=== PATIENT | female | born 1995 | race Caucasian/White ===

== ENCOUNTER 2023-07-25 15:11 | Outpatient (CLI) | payer BC, SELFPAY | END 2023-07-25 15:12 | disposition home or self-care (01) | PROVIDERS: PCP Family Medicine; Visit Provider Family Medicine | DX: Z00.00 Encounter for general adult medical examination without abnormal findings (principal); R53.83 Other fatigue; E66.01 Morbid (severe) obesity due to excess calories | CPT/HCPCS: 80053; 80061; 84443 ==

== ENCOUNTER 2024-12-06 15:30 | Outpatient (CLI) | payer BC, SELFPAY ==
[2024-12-06 19:53] LABS: Chlamydia DNA Amplified* NOT DETECTED (No Detected); GC DNA Amplified* NOT DETECTED (No Detected)
== END 2024-12-06 15:31 | disposition home or self-care (01) ==
LOC: NFLDREF 15:31
PROVIDERS: PCP Family Medicine; Visit Provider Registered Nurse
DX: Z11.3 Encounter for screening for infections with a predominantly sexual mode of transmission (principal)
CPT/HCPCS: 87491; 87591

== ENCOUNTER 2025-02-06 08:09 | Outpatient (CLI) | payer BC, SELFPAY ==
[2025-02-06 14:42] LABS: Bacterial Vaginosis* Negative (Negative); Candida glab/krus NOT DETECTED (No Detected); Candida species NOT DETECTED (No Detected); Trichomonas vaginalis NOT DETECTED (No Detected)
[2025-02-06 14:55] LABS: Chlamydia DNA Amplified* NOT DETECTED (No Detected); GC DNA Amplified* NOT DETECTED (No Detected)
== END 2025-02-06 08:10 | disposition home or self-care (01) ==
PROVIDERS: PCP Family Medicine; Visit Provider Registered Nurse
DX: N92.6 Irregular menstruation, unspecified (principal); Z11.3 Encounter for screening for infections with a predominantly sexual mode of transmission
CPT/HCPCS: 81513; 84443; 87481; 87491; 87591; 87661

== ENCOUNTER 2025-03-12 16:43 | Emergency (ER) | payer BC, SELFPAY ==
--- OUTSIDE RECORDS SUMMARY | 2025-03-12 16:44 | XMS_ITS | Clinical Summary ---
Author Organization [facility] Address [facility] [place] [address] Care Team Providers Care Acute Specialist Name Role Phone Jessica Quiñones RD Unavailable [phone] Jacquelyn De La Fuente TECHNOLOGY INFUSION SPECIALIST Unavailable Andres Valles MD Unavailable Enedelia Lowry RN Unavailable Poonam Motley Primary Care Provider [phone] Allergies Active Allergy Reactions Criticality Noted Date Comments Amoxicillin Hives 01/15/2014 Doxycycline Hives High 03/05/2019 Medications albuterol HFA (PRO-AIR; VENTOLIN; PROVENTIL) 90 mcg/actuation inhaler Inhale 2 Puffs by mouth 4 times daily if needed for Shortness Of Breath. Active fluticasone propion-salmeteroL (Advair HFA) 115-21 mcg/actuation inhalerIndications :Moderate persistent asthma with exacerbation (HC) Inhale 2 Puffs by mouth two times daily. 1 Each 4 Active cholecalciferol, Vitamin D3, 2,000 unit tabletIndications: Vitamin D insufficiency Take 1 Tablet (2,000 units) by mouth once daily. Active calcium citrate-vitamin D3, 315 mg-250 units, (CITRACAL WITH VITAMIN D) 315 mg-6.25 mcg (250 unit) tab tabletIndications: Morbid obesity with BMI of 40.0-44.9, adult (HC) Take 2 Tablets by mouth two times daily with meals. Total daily dose of Calcium should be 1200mg - 1500mg 4 Active multivitamin pediatric chewable tabletIndications: Morbid obesity with BMI of 40.0-44.9, adult (HC) Chew 2 Tablets by mouth once daily. 4 Active cholecalciferol, Vitamin D3, (Vitamin D-3) 5,000 unit tab tabletIndications: Morbid obesity with BMI of 40.0-44.9, adult (HC) Take by mouth once daily. 4 Active phentermine (ADIPEX-P) 37.5 mg tabletIndications: Obesity, Class II, BMI 35-39.9 Take 1 Tablet (37.5 mg) by mouth once daily before a meal. 30 Tablet 2 4 Active DULoxetine (CYMBALTA) 30 mg Delayed-release capsuleIndications :MDD (major depressive disorder), recurrent episode, moderate (HC) Take 1 Capsule (30 mg) by mouth once daily. 90 Capsule 3 4 Active ibuprofen (ADVIL; MOTRIN) 800 mg tabletIndications: Dysmenorrhea Take 1 Tablet (800 mg) by mouth every 8 hours if needed for Pain. 60 Tablet 1 4 Active atorvastatin (LIPITOR) 20 mg tabletIndications: Mixed hyperlipidemia Take 1 Tablet (20 mg) by mouth at bedtime. 90 Tablet 2 5 Active Active Problems Patient Care Coordination No te Formatting of this note is d ifferent from the original. Weight Management - Adult Surgical Program Patient Received Binder: Yes Part of [facility] Program: no RDC or GS Patient: No Home Hospital Plan: Candidate (Initial Consult) Initial Consult / Established Care 04/05/[address] Andres Lowry product support analyst: Wt Readings from Last 1 Encounters: 04/05/24 106.1 kg (234 lb) lbs, Ht Readings from Last 1 Encounters: 04/05/24 1.549 m (5' 0.98) BMI: 44.24 Planned Operation Sleeve Gastrectomy Payor: [employer] [place] / Plan: [employer] [place] / Product Type: *No Product type* / Insurance requirements:Six months (non consecutive) and Rule out endocrine Est. Pgm Completion: ~ October, Procedure Location: [facility] Co-morbidities: dyslipidemia Orders: Labs Yes Imaging / Procedures Abdominal Ultrasound Pre-Surgery Program Consults: - Registered Dietitian 6 - Psychological Evaluation: yes Referrals: Yes - PT: -Tobacco Cessation: reports that she is a non-smoker but has been exposed to tobacco smoke. She has never used smokeless tobacco. Future Appointments Date Time Provider Department Center 04/22/2024 2:[address] [facility] Problem Noted Date Diagnosed Date Cannabis dependence 04/05/2024 Morbid obesity with BMI of 40.0-44.9, adult 03/17 Mixed hyperlipidemia 12/28/2023 Moderate persistent asthma with exacerbation De Quervain's tenosynovitis 05/19/2023 Type O blood, Rh negative 10/21/2021 Morbid obesity 09/07/2021 Overview (12/21/2021): We discussed that, even in the absence of co-morbid conditions, women who are obese at the start of have increased risks. These risks include, but are not limited to, miscarriage, gestational diabetes, preeclampsia, intrauterine demise, defects, section, post hemorrhage, wound or uterine infections, and venous thromboembolism. Recommend no weight gain this . Asthma 09/07/2021 12/27/2022 Dyssomnia 12/31/2020 Chronic post-traumatic stress disorder (PTSD) Rhinitis, allergic 04/17/2019 Mild episode of recurrent major depressive disor oksana 03/05/2019 Generalized anxiety disorder 03/05/2019 Adult BMI 30+ 07/20/2015 Migraine 05/01/2013 Mild intermittent asthma 08/26/2011 Overview (09/18/2019): Overview: Asthma, Unspecified Resolved Problems Problem Noted Date Diagnosed Date Resolved Date Status post repeat low trans verse section 05/24/2022 12/27/2022 Normal labor 05/24/2022 12/27/2022 Supervision of other high ri sk pregnancies, unspecified trimester 10/20/2021 12/27/2022 12/27/2022 Overview (12/27/2022): Baseline labs wnl 10/20/2021. ASA started Habitual aborter, antepartum 09/10/2021 12/27/2022 12/27/2022 Overview (12/27/2022): She has had 2 consecutive confirmed chemical pregnancies since 04/2021. TSH and EDUARDO and LA normal. Will recheck EDUARDO and LA in approx 8 weeks. Will plan in office hysteroscopy for evaluation of the endometrial cavity. This issue developed after her last section. My nurse will be in contact with her to coordinate this. She will start OCPs after her next period to keep the endometrium thin until the procedure is performed. She has had 2 prior successful pregnancies, making a genetic issue less likely, but I will recommend karyotype if she has another confirmed SAB or the hysteroscopy is normal. Maternal care for low transv erse scar from previous delivery 09/07/2021 12/27/2022 Overview (12/21/2021): LTCS x2. Plan repeat with tubal ligation Personal history of other co mplications of , childbirth and the puerperium 09/07/2021 12/27/2022 Supervision of other high ri sk pregnancies, unspecified trimester 09/07/2021 12/27/2022 Overview (12/21/2021): Prior GDM A1, recommending diabetic diet this A1c pad Maternal mental disorder, with delivery 07/20/2015 12/27/2022 Airway hyperreactivity 03/10/201012/27 Encounters Date Type Department Care Team Description 01/02/2025 12:45 PM CDT Orders Only [facility] [address] [facility], [place] [id number] Lab, [place] [facility] 01/02/2025 Travel 12/13/2024 Refill [facility] [address] [place] [address] Poonam Motley PA Refill Request (Atorvastatin) from Last 3 Months Immunizations Immunization Administration Dates Next Due COVID-19 vaccine (Wallerius-Bio NTech 30mcg/0.3mL) PF, MDV 10/14/2021,03/31/2021,03/10/2021 DT (Age < 7 years) 12/28/2005 DTP-HIB 04/27/1995,01/09/1995,1994 DTaP 09/23/1999,09/22/1999,11/10/1998 DTaP-HIB (TriHIBIT) 09/11/1996 Hepatitis A (Peds) 09/28/2010,03/10/2010 Hepatitis A (Peds),Unspecified 09/28/2010 Hepatitis A, Unspecified 09/28/2010 Hepatitis B, Unspecified 04/27/1995,1994,1 10/23/1993 Human Papilloma Virus Vaccine 06/18/2008, 008,09/03/2007 Influenza Virus, Unspecified 09/23/2015, 08/14/2014,07/29/2013,06/25,08/17/2011 Influenza, IIV3 (Age >=3 years) 10/05/2017,10/02,09/03/2007 Influenza, IIV4 08/08/2019,07/24/2018,10/05/2017 Influenza, IIV4 (=>6mos) MDV 09/23/2015 Meningococcal Vaccine (Menactra) 12/28/2005 Oral Polio Vaccine 09/23/1999, 9,01/09/1995,11/04 Polio Virus, Unspecified 09/23/1999,11/10/1997,1 11/11/1995 Td (Age >=7 Years) 12/28/2005 Tdap 03/16/2022,06/04/2018 Varicella Vaccine 07/14/2007,07/09/2007,11/10/18 99 Social History Tobacco Use Types Packs/Day Years Used Date Smoking Tobacco: Passive Smo ke Exposure - Never Smoker Smokeless Tobacco: Never Tobacco Cessation:Counseling Given: Yes Alcohol Use Standard Drinks/Week Comments No 0 (1 standard drink = 0.6 oz pur e alcohol) PHQ-2 Answer Date Recorded PHQ-2 TOTAL SCORE 3 09/19/2024 Social Connections Answer Date Recorded Do you often feel lonely or isolated from those around you? 0 09/19/2024 Financial Resource Strain Answer Date R ecorded Difficulty of Paying Living Expenses 2 09/19/2024 Difficulty of Paying Living Expenses 1 09/19/2024 Food Insecurity Answer Date Recorded Do you worry your food will run out before you are able to buy more? 1 09/19/2024 Transportation Needs Answer Date Record ed Does lack of transportation keep you from medica l appointments? 1 09/19/2024 Does lack of transportation keep you from work, meetings or getting things that you need? 1 09/19/2024 Housing Stability Answer Date Recorded What is your housing situation today? 1 09/19/2024 Utilities Answer Date Recorded Do you have trouble paying f or utilities (for example, heat, electricity, water, phone)? 2 09/19/2024 Comments No Sex and Gender Information Value Date Recorded Sex Assigned at Not on file Legal Sex Female 5:23 AM CUSTOMER SUPPORT REPRESENTATIVE Gender Identity Not on file Sexual Orientation Not on file Obstetrics History Para Term AB IAB SAB Ectopic Multiple Livin g Live Births 5 3 2 1 2 2 0 3 3 Date Outcome GA Total Labor Labor/2nd/3rd Weight Sex Type Anes PTL Essie A1 A5 Name Clin 2013 34w 5d F CS-LTr anv Livin g Paige a 2017 Term 37w 1d F C-Sect ion Livin g Aubre e 2020 SAB SPONTA NEOUS 2020 SAB SPONTA NEOUS 2021 Term 38w 2d 0h 01m 0h 01m 3 kg (6 lb 9.8 oz) F C-Sect ion Spinal Livin g 8 8 BG YADIRA SCHOFIELD, Yeison Hein MD Complications:None Delivery Location:Hospital ( [facility] Last Filed Vital Signs Vital Sign Reading Time Taken Comments Blood Pressure 120/86 10/28/2024 9:02 AM CUSTOMER SUPPORT REPRESENTATIVE sta ellen Pulse 91 10/28/2024 9:02 AM CUSTOMER SUPPORT REPRESENTATIVE Temperature 36.9 C (98.5 F) 03/19/2023 4:18 PM CDT Respiratory Rate 20 03/19/2023 4:18 PM CDT Oxygen Saturation 100% 09/19/2024 8:51 AM CUSTOMER SUPPORT REPRESENTATIVE Inhaled Oxygen Concentration - - Weight 89.4 kg (197 lb) 11/06/2024 1:00 PM CUSTOMER SUPPORT REPRESENTATIVE Height 154.9 cm (5' 0.98) 11/06/2024 1:00 PM CS T Body Mass Index 37.24 11/06/2024 1:00 PM CUSTOMER SUPPORT REPRESENTATIVE Plan of Treatment Health Maintenance Due Date Last Done Comments Pneumococcal series for age 6-49 (1 of 2 - PCV) 2013 Pap test for age 21-65 03/17/2024 , 03/17/2021, 01/15/2018, Additional history exists COVID-19 vaccine series ( season) 2024 10/14/2021, 03/31/2021, 03/10/2021 Influenza Vaccine (Season Ended) 2025 08/08/2019, 07/24/2018, 10/05/2017, Additional history exists Depression screening for age 12+ 09/19/2025 09/19/2024, 12/26/2023, 12/27/2022, Additional history exists BMI (ht and wt on same day) for age 18+ 11/06/2025 11/06/2024, 09/18/2024, 09/03/2024, Additional history exists Tetanus booster 03/16/2032 03/16/2022, 05/17, 12/28/2005 Hepatitis B series for 19+ Completed 04/27, 1994, 1994 HIV for age 15-65 Addressed 10/20/2021 (Ve rified in Care Everywhere or Patient Record) Overridden with the intention of not completing the topic Hepatitis C screening for age 18-79 Addressed 10/20/2021 (Verified in Care Everywhere or Patient Record) Overridden with the intention of not completing the topic Tdap Completed 03/16/2022, 06/04/2018 Procedures Procedure Name Priority Date/Time Associated Diagnosis Comments LIPID PANEL W REFLEX MEASURED LDL Routine 01/02/2025 12:47 PM CDT Mixed hyperlipidemia COMP METABOLIC PANEL Routine 01/02/2025 12:47 PM CDT Mixed hyperlipidemia FLY RAISER LOCKSTITCH THIN PREP PAP SCREEN IMAGED Routine 03/17/2021 1:45 PM CDT from Last 3 Months or Most Recently Relevant to Health Maintenance Results * (ABNORMAL) LIPID PANEL W REFLEX MEASURED LDL (01/02/2025 12:47 PM CDT) CHOLESTEROL, TOTAL 222(H) <200 mg/dL [facility] HDL CHOLESTEROL 47(L) > OR = 50 mg/dL [facility] TRIGLYCERIDES 165(H) <150 mg/dL [facility] LDL-CHOLESTEROL 145(H) mg/dL (calc) [facility] Comment: Reference range: <100 Desirable range <100 mg/dL for primary prevention; <70 mg/dL for patients with CHD or diabetic patients with > or = 2 CHD risk factors. LDL-C is now calculated using the Amador-Milligan calculation, which is a validated novel method providing better accuracy than the Friedewald equation in the estimation of LDL-C. Amador SS et al. LIANA. 2013;310(19): 8156-4588 (http://education.Fanwards/faq/WGS337) CHOL/HDLC RATIO 4.7 <5.0 (calc) [facility] NON HDL CHOLESTEROL 175(H) <130 mg/dL (calc) [facility] Comment: For patients with diabetes plus 1 major ASCVD risk factor, treating to a non-HDL-C goal of <100 mg/dL (LDL-C of <70 mg/dL) is considered a therapeutic option. Blood BLOOD SPECIMEN / Unknown 01/02/2025 12:47 PM CDT 01/02/2025 12:47 PM CDT us Poonam DESAI CHEMISTRY Final Resu lt [facility] [address] [place] [address], [facility] [address] [place] [address] * (ABNORMAL) COMP METABOLIC PANEL (01/02/2025 12:47 PM CDT) [facility] GLUCOSE 98 65 - 99 mg/dL [facility] Comment: Fasting reference interval UREA NITROGEN (BUN) 14 7 - 25 mg/dL [facility] CREATININE 0.62 0.50 - 0.97 mg/dL [facility] EGFR 123 > OR = 60 mL/min/1. 73m2 [facility] BUN/CREATININE RATIO SEE NOTE: 6 - 22 (calc) [facility] Comment: Not Reported: BUN and Creatinine are within reference range. SODIUM 137 135 - 146 mmol/L [facility] POTASSIUM 4.0 3.5 - 5.3 mmol/L [facility] CHLORIDE 101 98 - 110 mmol/L [facility] CARBON DIOXIDE 28 20 - 32 mmol/L [facility] CALCIUM 9.1 8.6 - 10.2 mg/dL [facility] PROTEIN, TOTAL 7.0 6.1 - 8.1 g/dL [facility] ALBUMIN 4.2 3.6 - 5.1 g/dL [facility] GLOBULIN 2.8 1.9 - 3.7 g/dL (calc) [facility] ALBUMIN/GLOBULIN RATIO 1.5 1.0 - 2.5 (calc) [facility] BILIRUBIN, TOTAL 0.6 0.2 - 1.2 mg/dL [facility] ALKALINE PHOSPHATASE 77 31 - 125 U/L [facility] AST 26 10 - 30 U/L [facility] ALT 31(H) 6 - 29 U/L [facility] Blood BLOOD SPECIMEN / Unknown 01/02/2025 12:47 PM CDT 01/02/2025 12:47 PM CDT Poonam DESAI CHEMISTRY Final Resu lt [facility] [address] [place] [address], [place] [phone] [facility] [address] [place] [address] * FLY RAISER LOCKSTITCH THIN PREP PAP SCREEN IMAGED (03/17/2021 1:45 PM CDT) Case Report Gynecologic Cytology Report Case: [id number] Authorizing Provider: Ann Joshi MD Collected: 03/17/2021 1345 Ordering Location: [facility] Received: 03/19/2021 0730 First Screen: Rahel García Specimen: FLY RAISER LOCKSTITCH ThinPrep Vial Screening, Cervical/Vaginal 03/26/2021 5:45 PM CDT [facility] [employer] [facility] INTERPRETATION/ RESULT NEGATIVE FOR INTRAEPITHELIAL LESION OR MALIGNANCY (NIL) (none) 03/26/2021 5:45 PM CDT [facility] at 1745 CDT SPECIMEN ADEQUACY Satisfactory for evaluation Endocervical component present 03/26/2021 5:45 PM CDT [facility] HPV REQUEST HPV and PAP 03/26/2021 5:45 PM CDT [facility] Date of LMP 02/19/2021 03/26/2021 5:45 PM CDT [facility] Last Pap Date 01/15/2018 03/26/2021 5:45 PM CDT [facility] Last Pap Result NIL 5:45 PM CDT [facility] Additional Information 03/26/2021 5:45 PM CDT [facility] Comment: Interpreted at [facility] [employer] [facility], Central Laboratory - [address], [place] [address] Automated Review Successful 03/26/2021 5:45 PM CDT [facility] Comment:Specimen processed s uccessfully by automated counselor camp device, ThinPrep Imaging System, [employer] ANCILLARY TESTING FLY RAISER LOCKSTITCH HPV Ordered, Please see separate report 03/26/2021 5:[address] [facility] Note The pap test is a screening technique, not a diagnostic procedure. It is used primarily to screen for squamous cancers and precursor lesions. Published studies have shown that it is subject to both false negative and false positive results. The pap test should not be used as the sole means to diagnose or exclude pre-malignant and malignant lesions. 03/26/2021 5:[address] [facility] Other (Cervical/Vagina l) 03/17/2021 1:45 PM CDT 03/19/2021 7:30 AM CDT us Ann Joshi MD PATHOLOGY/CYTOLOGY Final R esult [facility] [address] [place] [address], from Last 3 Months or Most Recently Relevant to Health Maintenance Insurance [facility] WORKERS COMP Advance Directives * Full Code (Latest Code Status on File) Date Activated Date Inactivated Comments 05/24/2022 5:24 AM 05/26/2022 2:10 PM Question Answer Comments Code Status Discussion: Reviewed Preferences Care Teams Acute Specialist Relationship Specialty Start Date End Date Poonam Motley PA [address] [place] [address] PCP - General Physician [facility] 09/20/24 Jessica Quiñones RD [address] [place] [address] Chief Radiologic Technologist 04/22/24 Jacquelyn De La Fuente NP [address] [facility] [address] [place] [address] Consulting Physician Nurse Practitioner - Adult 03/28/24 Andres Valles MD [address] [address] Consulting Physician Surgery - General 04/05/24 Enedelia Lowry RN [address] [place] [id number] Award Machine Operator Registered Nurse 04/05/24
[2025-03-12 16:49] VITALS: BP 142/77; PULSE 87; RESP 18; TEMP 36.5; O2SAT 99; BMI 37.8
--- NOTE | 2025-03-12 16:49 | CRLHL7_ITS ---
For Patients: As a result of the Century Cures Act, medical imaging exams and procedure reports are released immediately into your electronic medical record. You may view this report before your referring provider. If you have questions, please contact your health care provider. INDICATION: Diffuse abdominal pain TECHNIQUE: CT abdomen and pelvis acquired with 98 cc Isovue 370 IV contrast. COMPARISON: None. FINDINGS: Lower chest: Left lower lobe solid nodule with surrounding ground-glass measuring 1 cm (3/). Liver: Unremarkable. Normal in size and attenuation. No suspicious masses. Gallbladder and bile ducts: Unremarkable. No stones or inflammation. No biliary dilatation. Pancreas: Unremarkable. No mass or inflammation. Spleen: Unremarkable. Normal in size. No masses. Adrenal glands: Unremarkable. No nodules. Kidneys: Right interpolar nonobstructing renal calculus measuring 6 mm.. No suspicious masses, stones, or hydronephrosis. GI tract: Diffusely fluid-filled small bowel with prominent caliber small bowel loops with mild wall thickening in the left mid abdomen and left upper quadrant. No surrounding fat stranding to suggest definite inflammation. Mildly distended stomach with ingested contents. Normal appendix. Vasculature: Abdominal aorta is normal in caliber. Mesenteric arteries are patent. Lymph nodes: No lymphadenopathy. Peritoneum/Abdominal Wall: Unremarkable. No sign of mass or infiltration. No free air or significant free fluid. Pelvis: IUD in place in appropriate position. Bones: Unremarkable for age. IMPRESSION: 1. Left lower lobe solid pulmonary nodule with surrounding ground-glass measuring 1 cm is indeterminate although likely infectious/inflammatory given the patient`s age and presumed absence of malignancy history. Consider short interval follow-up CT in 3 months to assess stability. 2. Diffusely fluid-filled small bowel with prominent caliber small bowel loops with mild wall thickening in the left mid abdomen and left upper quadrant. Findings may suggest early acute enteritis. 3. Nonobstructing right renal calculus. Please note that all CT scans at this facility use dose modulation, iterative reconstruction, and/or weight-based dosing when appropriate to reduce radiation dose to as low as reasonably achievable. Dictated by Felipa Varner MD @ 03/12/2025 6:48:25 PM (Electronically Signed)
--- NOTE | 2025-03-12 16:51 | ED_ITS ---
HPI - General Adult General Chief complaint: Abdominal Pain Stated complaint: stomach pain, sent by urgent care Time Seen by Provider: 03/12/25 16:45 History of Present Illness HPI narrative: Patient is a 29 year white female who for 3 days has had epigastric and lower abdominal pain. She has had a bilateral tubal ligation. She has had nausea but no vomiting, frequent stools but no diarrhea. No blood in her stool. She is unclear what is happening. She has had a difficult time finding a comfortable position. She has not had any urinary symptoms or flank pain it has been more in the epigastrium and mid to lower abdomen. She said it started on the right side now it is more on the left side. She has had no rigors or chills. No dysuria frequency. No chest pain, no shortness of breath. Related Data Home Medications ?Medication ?Instructions ?Recorded ?Confirmed albuterol sulfate 90 mcg/actuation 2 inhalation PRN 03/12/25 aerosol inhaler Allergies Allergy/AdvReac Type Severity Reaction Status Date / Time amoxicillin Allergy Mild Rash Verified 03/12/25 17:47 doxycycline AdvReac Intermediate Hives Verified 03/12/25 17:47 Review of Systems Status of ROS: Reports: 6 or more systems reviewed and unremarkable except as noted in History and below [facility] Medical History Seasonal allergic rhinitis ?J30.2 - Other seasonal allergic rhinitis (ICD-10) Gastroesophageal reflux disease ?K21.9 - Gastro-esophageal reflux disease without esophagitis (ICD-10) Depression ?F32.A - Depression, unspecified (ICD-10) Anxiety ?F41.9 - Anxiety disorder, unspecified (ICD-10) Right wrist tendinitis ?M77.8 - Other enthesopathies, not elsewhere classified (ICD-10) Left wrist tendinitis ?M77.8 - Other enthesopathies, not elsewhere classified (ICD-10) Immune to varicella (2018) ?Z78.9 - Other specified health status (ICD-10) Gestational diabetes mellitus (GDM) ?O24.419 - Gestational diabetes mellitus in , unspecified control (ICD-10) Pruritic rash (05/2018) ?L28.2 - Other prurigo (ICD-10) Chest wall pain ?R07.89 - Other chest pain (ICD-10) History of pre-eclampsia ?Z87.59 - Personal history of other complications of , childbirth and the puerperium (ICD-10) Surgical History Hx of tubal ligation (2021) ?Z98.51 - Tubal ligation status (ICD-10) H/O foot surgery ?Z98.890 - Other specified postprocedural states (ICD-10) History of section (2013) ?Z98.891 - History of uterine scar from previous surgery (ICD-10) Family History Family/Other Down syndrome Paternal Grandfather Myocardial infarction Stroke Maternal Grandmother Bone cancer Type 1 diabetes mellitus Diabetes High blood pressure Other Thyroid disease Social History Narrative: Single lives with boyfriend, [id number] mom, 3 kids Nonsmoker, remote history of 2 years of irregular smoking Does not drink alcohol Exercises twice a week body weight exercises 20-30 minutes Uses medical marijuana twice a month for anxiety Habits: No tobacco or alcohol use. History of tobacco use quit in 2011. Marijuana use is reported for medical reasons. What is your current living situation?: I presently have a place to live Problems where you live: no known problems In the past 12 months, utilities in danger of being shut off: no In past 12 months, lack of transportation kept you from medical appts, meetings, work, or getting things needed for daily living: no In the past 12 mos, have been you worried that your food would run out before you had money to buy more?: never true In the past 12 mos, the food you bought just didn't last and you didn't have money to buy more?: never true Smoking Status: Former smoker Do you use any of these nicotine containing products: None Second hand tobacco smoke exposure: No How often do you have a drink containing alcohol: never How often do you have six or more drinks on one occasion: Never AUDIT-C Alcohol total score: 0 Non-prescribed substance use: denies use How often does anyone, including family, friends and others, physically hurt you : never How often does anyone, including family, friends and others, insult or talk down to you: never How often does anyone, including family, friends and others, threaten you with harm: never How often does anyone, including family, friends and others, scream or curse at you: never service: No Exam Narrative: Exam Narrative: Objective: Vital signs are within normal limits in general patient in no marked distress Patient alert orient x3 communicative HEENT is unremarkable no scleral icterus no facial asymmetry Neck is supple Pulse regular Abdomen benign obese nontender no rebound, no palpable masses, negative CVA tenderness Normal extremities without edema and no focal neurologic findings. Skin is without rashes or color changes Const: Vital Signs, click to edit/add: Vital Signs - 24 hr 03/12/25 16:49 03/12/25 19:27 Temperature 97.7 F Pulse Rate [Pulse Oximeter] 87 Respiratory Rate 18 20 Blood Pressure [Ri ght Upper Arm] 142/77 H 118/74 Pulse Oximetry 99 99 Oxygen Delivery Me thod Room Air Course Vital Signs Vital signs: Initial Vital Signs Temperature 97.7 F 03/12/25 16:49 Temperature Source Temporal Artery Scan 03/12/25 16:49 Pulse Rate 87 03/12/25 16:49 Pulse Rhythm Regular 03/12/25 16:49 Respiratory Rate 18 03/12/25 16:49 Blood Pressure 142/77 H 03/12/25 16:49 Blood Pressure Mean 98 03/12/25 16:49 Blood Pressure Position Sitting 03/12/25 16:49 Pulse Oximetry 99 03/12/25 16:49 Oxygen Delivery Method Room Air 03/12/25 16:49 Vital Signs Temperature 97.7 F 03/12/25 16:49 Pulse Rate 87 03/12/25 16:49 Respiratory Rate 18 03/12/25 16:49 Blood Pressure 142/77 H 03/12/25 16:49 Pulse Oximetry 99 03/12/25 16:49 Oxygen Delivery Method Room Air 03/12/25 16:49 Temperature 97.7 F 03/12/25 16:49 Pulse Rate 87 03/12/25 16:49 Respiratory Rate 20 03/12/25 19:27 Blood Pressure 118/74 03/12/25 19:27 Pulse Oximetry 99 03/12/25 19:27 Oxygen Delivery Method Room Air 03/12/25 16:49 Medications Administered Medications: Discontinued Medications Generic Name Dose Route Start Last Admin Trade Name Christiano PRN Reason Stop Dose Admin Sodium Chloride 1,000 mls @ 6,000 mls/hr 03/12/25 17:00 03/12/25 18:24 0.9 % Sodium Chloride 1000 Ml IV 03/12/25 17:09 Infused .Q10M FELIPE Infusion Lorazepam 0.5 mg 03/12/25 16:49 03/12/25 17:04 Lorazepam 2 Mg/Ml Inj IVP 0.5 mg ONCE PRN Administration Morphine Sulfate 2 mg 03/12/25 16:49 03/12/25 17:05 Morphine 4 Mg/Ml Inj IVP 03/12/25 16:50 2 mg ONCE ONE Administration Medical Decision Making MDM Narrative Medical decision making narrative: 29-year-old female with 3 day history of abdominal discomfort abdominal gassiness, nausea, frequent stools but no diarrhea no vomiting. No history of abdominal problems. Status post tubal ligation. She has had a in the past as well. I think at this point we rule out obstruction, rule out any type of intestinal infection, rule out appendicitis. CT scan with IV contrast abdomen pelvis Will also get labs, IV fluid, IV small dose of morphine and Ativan. Addendum 7:15 p.m. the patient has a CT scan that shows diffuse early enteritis some fluid in the small bowel. I think that is the source of her issue. I think some pain management with [place] would help her for a day or so, keep NPO for 24 hours, can not take sips of water. Recheck with regular doctor as needed. She also has a nonobstructing kidney stone noted, and as well has a ground-glass surrounded acute lung nodule that needs follow-up in about [address] This was informed to her. She can set that up with her primary care doctor. Return if problems or concerns or recurrent pain that she is unable to manage. Lab Data Labs: Lab Results 03/12/25 03/12/25 Range/Units 17:00 18:35 WBC 4.96 (4.50-11.00) K/uL RBC 4.54 (4.00-5.20) m/uL Hgb 12.7 (12.0-16.0) gm/dL Hct 39.2 (33.0-51.0) % MCV 86 (80-100) fL MCH 28 (26-34) pg MCHC 32 (32-36) gm/dL RDW Coeff of Neo 11.8 (11.5-15.5) % Plt Count 245 (140-440) K/uL Neut % (Auto) 55.0 (42.0-72.0) % Lymph % (Auto) 32.9 (20-44) % [place] % (Auto) 9.5 (0.0-11.0) % Eos % (Auto) 2.4 (0.0-7.0) % Baso % (Auto) 0.0 (0.0-3.0) % Neut # (Auto) 2.73 (1.7-7.0) K/uL Lymph # (Auto) 1.63 (0.90-2.90) K/uL [place] # (Auto) 0.50 (0.00-0.90) K/UL Eos # (Auto) 0.12 (0.00-0.50) K/uL Baso # (Auto) 0.00 (0.00-0.30) K/uL Abs Immat Gran (auto) 0.01 (0.00-0.30) K/uL Imm/Tot Granulo (auto) 0.2 % Sodium 140 (135-149) mmol/L Potassium 3.5 L (3.6-5.1) mmol/L Chloride 103 (96-114) mmol/L Carbon Dioxide 29 (20-32) mmol/L Anion Gap 8 (7-15) mEq/L BUN 13 (5-24) mg/dL Creatinine 0.7 (0.5-1.5) mg/dL Estimated Creat Clear 88.68 Estimated GFR 119 ml/min Glucose 86 (60-115) mg/dL Calcium 9.0 (8.4-10.6) mg/dL Total Bilirubin 0.6 (0.1-1.5) mg/dL Direct Bilirubin 0.2 (0.0-0.5) mg/dL AST 36 H (12-35) U/L ALT 22 (4-35) U/L Alkaline Phosphatase 73 (40-150) U/L C-Reactive Protein 0.7 (0.5-1.0) mg/dL Total Protein 7.5 (6.0-8.3) g/dL Albumin 4.4 (3.3-5.0) g/dL Amylase 57 (18-89) U/L HCG, Qual Negative (Negative) Urine Color Deepika A (Yellow) Urine Appearance Slightly Cloudy A (Clear) Urine pH 5.5 (5.0-8.5) Ur Specific [place] 1.025 (1.000-1.030) Urine Protein 1+ A (Negative) Urine Glucose (UA) Negative (Negative) Urine Ketones Negative (Negative) Urine Blood 3+ A (Negative) Urine Nitrite Negative (Negative) Urine Bilirubin Negative (Negative) Urine Urobilinogen 0.2 (0.2-1.0) Ur Leukocyte Esterase Trace A (Negative) Urine RBC 0-2 (0-2) Urine WBC 0-2 (0-5) Ur Squamous Epith Cells Few (None-Few) Urine Bacteria Few A (None) Urine Mucus Moderate A (None) Discharge Plan Discharge Clinical Impression: Abdominal pain, Enteritis, Incidental lung nodule Patient Disposition: Home w/ Parent or Adult Condition: Improved Additional Instructions: Recommend only sips of water for the next 12 hours or so then may resume diet as tolerated. Will give some pain medicine to use as needed. Also remember you have a lung nodule that needs a repeat CT scan in 3 months he can set that up to her primary care doctor. Return to the ER as needed. Activity Level: Light activity Prescriptions: No Action albuterol sulfate 90 mcg/actuation HFA aerosol inhaler 2 inhalation PRN Follow Up/Referrals: Cherelle Erwin MD [Primary Care Provider, Family Practice] Stand Alone Forms: [employer] Info Instructions
[2025-03-12] MEDS: LORazepam 2 MG/ML inj 0.5 MG IVP (17:04)
[2025-03-12] MEDS: 0.9 % SODIUM CHLORIDE 1000 ml 1,000 ML 6000 ML IV (17:04)
[2025-03-12] MEDS: MORPHINE 4 MG/ML INJ 2 MG IVP (17:05)
[2025-03-12 17:25] LABS: Eosinophils Absolute Auto 0.12 K/uL (0.00-0.50); Eosinophils Percent Auto 2.4 % (0.0-7.0); Hematocrit 39.2 % (33.0-51.0); Hemoglobin* 12.7 gm/dL (12.0-16.0); Immature Granulocytes Abs Auto 0.01 K/uL (0.00-0.30); Immature Granulocytes Pct Auto 0.2 %; Lymphocytes Absolute Auto 1.63 K/uL (0.90-2.90); Lymphocytes Percent Auto 32.9 % (20-44); Mean Corpuscular HGB Conc 32 gm/dL (32-36); Mean Corpuscular Hemoglobin 28 pg (26-34); Mean Corpuscular Volume 86 fL (80-100); Monocytes Percent Auto 9.5 % (0.0-11.0); Neutrophils Absolute Auto 2.73 K/uL (1.7-7.0); Platelet Count* 245 K/uL (140-440); RDW Coefficient of Variation % 11.8 % (11.5-15.5); Red Blood Count 4.54 m/uL (4.00-5.20); White Blood Count* 4.96 K/uL (4.50-11.00)
[2025-03-12 17:38] LABS: Albumin* 4.4 g/dL (3.3-5.0); Chloride* 103 mmol/L (96-114); Sodium* 140 mmol/L (135-149)
[2025-03-12 17:39] LABS: Potassium* 3.5 mmol/L (3.6-5.1)
[2025-03-12 17:41] LABS: Alanine Aminotransferase* 22 U/L (4-35); Alkaline Phosphatase* 73 U/L (40-150); Amylase* 57 U/L (18-89); Anion Gap 8 mEq/L (7-15); Aspartate Amino Transferase* 36 U/L (12-35); Bilirubin Direct* 0.2 mg/dL (0.0-0.5); Bilirubin Total* 0.6 mg/dL (0.1-1.5); Blood Urea Nitrogen* 13 mg/dL (5-24); Carbon Dioxide* 29 mmol/L (20-32); Creatinine* 0.7 mg/dL (0.5-1.5); Est. Creatinine Clearance* 88.68; Estimated Glomerular Filt Rate 119 ml/min; Glucose* 86 mg/dL (60-115); Total Protein* 7.5 g/dL (6.0-8.3)
[2025-03-12 17:42] LABS: Slide Review Reflex No
[2025-03-12 17:44] LABS: C Reactive Protein* 0.7 mg/dL (0.5-1.0)
[2025-03-12 17:50] LABS: HCG Qualitative Serum* Negative (Negative)
[2025-03-12 18:44] LABS: Appearance Urine Slightly Cloudy (Clear); Bilirubin Urine Negative (Negative); Blood Urine 3+ (Negative); Color Urine Amber (Yellow); Glucose Urine Negative (Negative); Ketones Urine Negative (Negative); Leukocyte Esterase Urine Trace (Negative); Nitrite Urine Negative (Negative); Protein Urine 1+ (Negative); Specific Gravity Urine 1.025 (1.000-1.030); Urobilinogen Urine 0.2 (0.2-1.0); pH Urine 5.5 (5.0-8.5)
[2025-03-12 19:13] LABS: RBC Urine 0-2 (0-2); Squamous Epithelial Cell Urine Few (None-Few); WBC Urine 0-2 (0-5)
[2025-03-12 19:14] LABS: Bacteria Urine Few; Mucus Urine Moderate
[2025-03-12 19:27] VITALS: BP 118/74; RESP 20; O2SAT 99
== END 2025-03-12 19:29 | disposition home or self-care (01) ==
PROVIDERS: Emergency Provider Family Medicine; PCP Family Medicine
DX: R10.9 Unspecified abdominal pain (principal); K52.9 Noninfective gastroenteritis and colitis, unspecified; R91.1 Solitary pulmonary nodule
CPT/HCPCS: 36415; 74177; 80048; 80076; 81001; 82150; 84703; 85025; 86140; 87086; 96361; 96374; 96375; 99284; 99285; J2060; J2270; J7030; Q9967

== ENCOUNTER 2025-03-21 08:11 | Outpatient (CLI) | payer BC, SELFPAY ==
--- NOTE | 2025-03-21 08:15 | CRLHL7_ITS ---
For Patients: As a result of the Century Cures Act, medical imaging exams and procedure reports are released immediately into your electronic medical record. You may view this report before your referring provider. If you have questions, please contact your health care provider. INDICATION: Irregular menstruation, unspecified COMPARISON: None. TECHNIQUE: 2D hameed-scale and color Doppler images were acquired of the pelvis using a transabdominal and transvaginal approach. Transvaginal imaging performed to better visualize the endometrial stripe and ovaries. FINDINGS: Sonographic images demonstrate a normal size and smooth outer contour of the uterus. Uterus measures 9.3 cm in length by 4.4 cm in AP diameter by 5.9 cm in transverse dimension. section scar noted. No uterine fibroid. IUD is present in good position within the endometrial canal. The endometrium is not thickened. The right ovary measures 3.3 x 2.6 x 2.5 cm in size and the left ovary measures 2.6 x 2.1 x 1.9 cm. The ovaries demonstrate normal arterial and venous blood flow on color Doppler analysis. There are no suspicious fluid collections within the cul-de-sac. IMPRESSION: Normal position of an IUD within the endometrial canal. The endometrium is not thickened. Dictated by Kunal Mead MD @ 03/24/2025 6:11:07 AM (Electronically Signed)
== END 2025-03-21 08:12 | disposition home or self-care (01) ==
PROVIDERS: PCP Physician Assistant; Visit Provider Registered Nurse
DX: N92.6 Irregular menstruation, unspecified (principal)
CPT/HCPCS: 76830; 76856